=== PATIENT | female | born 1935 | race Caucasian/White ===

== ENCOUNTER 2017-05-26 12:01 | Emergency (ER) | payer OTHER ==
[2017-05-26] MEDS: ONDANSETRON 4 MG INJ IV (12:44)
[2017-05-26 12:45] LABS: ADD MAN DIFF? NO
[2017-05-26] MEDS: morphine 2 MG INJ IV (12:46)
[2017-05-26 12:50] LABS: BASOPHILS % 0.4 % (0.0-2.0); EOSINOPHILS # 0.2 10^3/ul (0.0-0.5); EOSINOPHILS % 1.6 % (0.0-7.0); HEMATOCRIT 39.1 % (37.0-47.0); HEMOGLOBIN 11.9 g/dl (12.0-16.0); LYMPHOCYTES # 1.4 10^3/ul (0.8-2.9); LYMPHOCYTES % 12.6 % (15.0-51.0); MEAN CORPUSCULAR HEMOGLOBIN 24.2 pg (29.0-33.0); MEAN CORPUSCULAR HGB CONC 30.4 g/dl (32.0-37.0); MEAN CORPUSCULAR VOLUME 79.6 fl (82.0-101.0); MEAN PLATELET VOLUME 10.9 fl (7.4-10.4); MONOCYTE # 0.6 10^3/ul (0.3-0.9); MONOCYTES % 5.5 % (0.0-11.0); NEUTROPHIL # 8.9 10^3/ul (1.6-7.5); NEUTROPHILS % 79.2 % (39.0-77.0); PLATELET COUNT 271 10^3/UL (140-415); RED BLOOD COUNT 4.91 10^6/ul (4.20-5.40); RED CELL DISTRIBUTION WIDTH 15.2 % (11.5-14.5)
[2017-05-26 12:50] LABS: WHITE BLOOD COUNT 11.2 10^3/ul (4.8-10.8)
[2017-05-26 13:09] LABS: INR 0.85; PROTIME 11.7 Sec (11.9-14.9); PT RATIO 0.9
[2017-05-26 13:18] LABS: ANION GAP 15 (8-16); BLOOD UREA NITROGEN 19 mg/dl (7-20); CALCIUM 9.6 mg/dl (8.4-10.2); CARBON DIOXIDE 29 mmol/L (21-31); CHLORIDE 106 mmol/L (97-110); CREATININE 0.73 mg/dl (0.44-1.00); GLUCOSE 257 mg/dl (70-220); POTASSIUM 4.3 mmol/L (3.5-5.1); SODIUM 146 mmol/L (135-144)
== END 2017-05-26 14:11 | disposition home or self-care (01) ==
LOC: E/R 12:01
DX: M25.551 Pain in right hip (principal); M54.5 Low back pain; D64.9 Anemia, unspecified; E11.9 Type 2 diabetes mellitus without complications; I10 Essential (primary) hypertension; R07.9 Chest pain, unspecified; Z79.84 Long term (current) use of oral hypoglycemic drugs
CPT/HCPCS: 36415; 72100; 72192; 80048; 85025; 85610; 85730; 93005; 96374; 96375; 99285-25

== ENCOUNTER 2018-10-23 14:47 | Inpatient (IN) | payer OTHER ==
[2018-10-23 15:03] LABS: ADD MAN DIFF? NO
[2018-10-23 15:05] LABS: WHITE BLOOD COUNT 9.6 10^3/ul (4.8-10.8)
[2018-10-23 15:05] LABS: BASOPHIL # 0.1 10^3/ul (0.0-0.1); BASOPHILS % 0.5 % (0.0-2.0); EOSINOPHILS # 0.2 10^3/ul (0.0-0.5); EOSINOPHILS % 1.7 % (0.0-7.0); HEMATOCRIT 35.9 % (37.0-47.0); HEMOGLOBIN 10.5 g/dl (12.0-16.0); LYMPHOCYTES % 21.2 % (15.0-51.0); MEAN CORPUSCULAR HEMOGLOBIN 21.8 pg (29.0-33.0); MEAN CORPUSCULAR HGB CONC 29.2 g/dl (32.0-37.0); MEAN CORPUSCULAR VOLUME 74.6 fl (82.0-101.0); MEAN PLATELET VOLUME 10.5 fl (7.4-10.4); MONOCYTE # 0.8 10^3/ul (0.3-0.9); MONOCYTES % 8.3 % (0.0-11.0); NEUTROPHIL # 6.5 10^3/ul (1.6-7.5); NEUTROPHILS % 67.9 % (39.0-77.0); PLATELET COUNT 261 10^3/UL (140-415); RED BLOOD COUNT 4.81 10^6/ul (4.20-5.40); RED CELL DISTRIBUTION WIDTH 17.2 % (11.5-14.5)
[2018-10-23 15:22] LABS: ANION GAP 7 (5-13); BLOOD UREA NITROGEN 13 mg/dl (7-20); CALCIUM 9.3 mg/dl (8.4-10.2); CARBON DIOXIDE 29 mmol/L (21-31); CHLORIDE 106 mmol/L (97-110); CHOLESTEROL 142 mg/dl (100-200); CREATINE KINASE 198 IU/L (23-200); CREATININE 0.77 mg/dl (0.44-1.00); GLUCOSE 173 mg/dl (70-220); HDL CHOLESTEROL 47 mg/dl (33-92); LDL CHOLESTEROL,CALCULATED 65 mg/dl; POTASSIUM 3.7 mmol/L (3.5-5.1); SODIUM 142 mmol/L (135-144); TRIGLYCERIDES 150 mg/dl (0-149)
[2018-10-23 15:24] LABS: PROTIME 12.3 Sec (11.9-14.9)
[2018-10-23 15:25] LABS: HEMOGLOBIN A1C 7.1 % (0-5.9)
[2018-10-23 15:25] LABS: PARTIAL THROMBOPLASTIN TIME 33.1 Sec (23.0-35.0)
[2018-10-23 15:26] LABS: ETHANOL < 10.0 mg/dl (0-0)
[2018-10-23 15:30] LABS: CK INDEX 0.5; CK-MB 1.02 ng/ml (0.0-2.4)
[2018-10-23 15:35] LABS: TROPONIN-I < 0.012 ng/ml (0.000-0.120)
[2018-10-23] MEDS: ASPIRIN 325 MG TAB PO (16:46)
[2018-10-23] MEDS: CLOPIDOGREL 75 MG TAB PO (16:47)
[2018-10-23] MEDS ORDERED: ONDANSETRON 4 MG INJ IV ×2 (17:00→17:30)
[2018-10-23] MEDS ORDERED: ACETAMINOPHEN 325 MG TAB PO (17:00)
[2018-10-23 17:17] LABS: ADD UMIC YES; UR ASCORBIC ACID NEGATIVE (NEGATIVE); UR BILIRUBIN (Dip) NEGATIVE (NEGATIVE); UR BLOOD (Dip) NEGATIVE (NEGATIVE); UR CLARITY CLEAR (CLEAR); UR COLOR YELLOW (YELLOW); UR GLUCOSE (Dip) NEGATIVE (NEGATIVE); UR KETONES (Dip) NEGATIVE (NEGATIVE); UR LEUKOCYTE ESTERASE (Dip) TRACE Leu/ul (NEGATIVE); UR NITRITE (Dip) NEGATIVE (NEGATIVE); UR RBC 1 /HPF (0-5); UR SPECIFIC GRAVITY (Dip) 1.012 (1.003-1.030); UR TOTAL PROTEIN (Dip) NEGATIVE (NEGATIVE); UR UROBILINOGEN (Dip) NEGATIVE (NEGATIVE); UR WBC 3 /HPF (0-5)
[2018-10-23] MEDS ORDERED: NACL 0.9% 3 ML SYG IV (17:30)
[2018-10-23 17:36] LABS: AMPHETAMINE/METHAMPHETAMINE Negative (NEGATIVE); BARBITURATES Negative (NEGATIVE); BENZODIAZEPINES Negative (NEGATIVE); CANNABINOIDS Negative (NEGATIVE); COCAINE Negative (NEGATIVE); OPIATES Negative (NEGATIVE)
[2018-10-23] MEDS: ATORVASTATIN 40 MG TAB PO (20:23)
[2018-10-23] MEDS: GABAPENTIN 100 MG CAP PO (20:23)
[2018-10-23] MEDS: FUROSEMIDE 40 MG TAB PO (20:23)
[2018-10-23] MEDS ORDERED: GLUCOSE GEL 15 GRAM TUBE PO ×2 (20:30)
[2018-10-23] MEDS ORDERED: GLUCOSE GEL 15 GRAM TUBE BUCCAL (20:30)
[2018-10-23] MEDS ORDERED: GLUCAGON 1 MG INJ IM (20:30)
[2018-10-23] MEDS ORDERED: DEXTROSE 50% 50 ML SYRINGE IV ×2 (20:30)
[2018-10-23] MEDS: INSULIN ASPART [NOVOLOG] 3 ML PEN SC (22:44)
[2018-10-24] MEDS: ACCU-CHEK XX (02:00)
[2018-10-24 06:41] LABS: ADD MAN DIFF? NO
[2018-10-24 06:45] LABS: WHITE BLOOD COUNT 7.9 10^3/ul (4.8-10.8)
[2018-10-24 06:46] LABS: BASOPHIL # 0.1 10^3/ul (0.0-0.1); BASOPHILS % 0.6 % (0.0-2.0); EOSINOPHILS # 0.2 10^3/ul (0.0-0.5); HEMOGLOBIN 10.6 g/dl (12.0-16.0); LYMPHOCYTES # 1.9 10^3/ul (0.8-2.9); LYMPHOCYTES % 24.5 % (15.0-51.0); MEAN CORPUSCULAR HEMOGLOBIN 21.9 pg (29.0-33.0); MEAN CORPUSCULAR HGB CONC 29.4 g/dl (32.0-37.0); MEAN CORPUSCULAR VOLUME 74.5 fl (82.0-101.0); MEAN PLATELET VOLUME 10.5 fl (7.4-10.4); MONOCYTE # 0.9 10^3/ul (0.3-0.9); MONOCYTES % 10.9 % (0.0-11.0); NEUTROPHIL # 4.9 10^3/ul (1.6-7.5); NEUTROPHILS % 61.6 % (39.0-77.0); PLATELET COUNT 252 10^3/UL (140-415); RED BLOOD COUNT 4.83 10^6/ul (4.20-5.40); RED CELL DISTRIBUTION WIDTH 17.2 % (11.5-14.5)
[2018-10-24 07:11] LABS: ALANINE AMINOTRANSFERASE 12 IU/L (13-69); ALBUMIN 3.8 g/dl (3.3-4.9); ALBUMIN/GLOBULIN RATIO 1.22; ALKALINE PHOSPHATASE 80 IU/L (42-121); ANION GAP 9 (5-13); ASPARTATE AMINO TRANSFERASE 24 IU/L (15-46); BILIRUBIN,INDIRECT 0.9 mg/dl (0-1.1); BILIRUBIN,TOTAL 0.9 mg/dl (0.2-1.3); BLOOD UREA NITROGEN 12 mg/dl (7-20); CARBON DIOXIDE 32 mmol/L (21-31); CHLORIDE 104 mmol/L (97-110); CREATININE 0.87 mg/dl (0.44-1.00); GLUCOSE 124 mg/dl (70-220); MAGNESIUM 1.6 mg/dl (1.7-2.5); POTASSIUM 3.6 mmol/L (3.5-5.1); SODIUM 145 mmol/L (135-144); TOTAL PROTEIN 6.9 g/dl (6.1-8.1)
[2018-10-24 07:19] LABS: IRON 34 ug/dl (35-150)
[2018-10-24 07:29] LABS: % IRON SATURATION 10 % SAT (22-52); TOTAL IRON BINDING CAPACITY 350 ug/dl (241-421)
[2018-10-24] MEDS: INSULIN ASPART [NOVOLOG] 3 ML PEN SC ×4 (07:55→20:17)
[2018-10-24 07:58] LABS: HEMOGLOBIN A1C 7.1 % (0-5.9)
[2018-10-24] MEDS: CHOLECALCIFEROL 2,000 UNIT CAP PO (08:08)
[2018-10-24] MEDS: GABAPENTIN 100 MG CAP PO ×2 (08:09→21:04)
[2018-10-24] MEDS: BENAZEPRIL 20 MG TAB PO (08:09)
[2018-10-24] MEDS: AMLODIPINE 10 MG TAB PO (08:09)
[2018-10-24] MEDS: ATENOLOL 50 MG TAB PO (08:10)
[2018-10-24] MEDS: FUROSEMIDE 40 MG TAB PO ×2 (08:10→21:04)
[2018-10-24 08:23] LABS: FERRITIN 6.8 ng/ml (11.1-264.0)
[2018-10-24] MEDS ORDERED: NON-FORMULARY/PATIENT OWN MED (Cholecalciferol (Vitamin D3) (Vitamin D-3) 2,000 UNIT) PO (09:00)
[2018-10-24] MEDS ORDERED: NON-FORMULARY/PATIENT OWN MED (Amlodipine Besylate/Benazepril (Amlodipine-Benazepril 10-20 PO (09:00)
[2018-10-24] MEDS: ASPIRIN (EC) 81 MG TAB PO (10:52)
[2018-10-24] MEDS: ACETAMINOPHEN 325 MG TAB PO (10:54)
[2018-10-24] MEDS: MAGNESIUM SULFATE 2 GM/50 ML 50 ML IVPB (14:13)
[2018-10-24] MEDS: ATORVASTATIN 40 MG TAB PO (21:03)
[2018-10-25] MEDS: ACCU-CHEK XX (02:00)
[2018-10-25 07:08] LABS: ANION GAP 8 (5-13); BLOOD UREA NITROGEN 20 mg/dl (7-20); CALCIUM 8.9 mg/dl (8.4-10.2); CARBON DIOXIDE 32 mmol/L (21-31); CHLORIDE 104 mmol/L (97-110); CREATININE 0.84 mg/dl (0.44-1.00); GLUCOSE 148 mg/dl (70-220); POTASSIUM 3.4 mmol/L (3.5-5.1); SODIUM 144 mmol/L (135-144)
[2018-10-25] MEDS: GABAPENTIN 100 MG CAP PO (08:04)
[2018-10-25] MEDS: CHOLECALCIFEROL 2,000 UNIT CAP PO (08:04)
[2018-10-25] MEDS: BENAZEPRIL 20 MG TAB PO (08:05)
[2018-10-25] MEDS: AMLODIPINE 10 MG TAB PO (08:05)
[2018-10-25] MEDS: FUROSEMIDE 40 MG TAB PO (08:06)
[2018-10-25] MEDS: ASPIRIN (EC) 81 MG TAB PO (08:12)
[2018-10-25] MEDS: INSULIN ASPART [NOVOLOG] 3 ML PEN SC ×2 (08:39→11:50)
[2018-10-25] MEDS: ATENOLOL 50 MG TAB PO (08:39)
== END 2018-10-25 16:19 | disposition home health service (06) | DRG 93 ==
LOC: E/R 14:47 → TEL 10-24 21:14
DX: R47.01 Aphasia (principal); I10 Essential (primary) hypertension; Z86.73 Personal history of transient ischemic attack (TIA), and cerebral infarction without residual deficits
CPT/HCPCS: 36415; 70450; 70546; 70549; 70553; 71045; 80048; 80053; 80061; 80307; 81001; 82550; 82553; 82728; 82962; 83036; 83540; 83735; 84100; 84443; 84484; 85025; 85610; 85730; 92610; 93005; 93306; 97162; 99285-25